=== PATIENT | male | born 1955 | race Caucasian/White ===

== ENCOUNTER 2022-07-16 05:37 | Day surgery (SDC) | payer MEDICARE, OTHER ==
[2022-07-15 11:07] LABS: BASOPHILS % (AUTO) 0.4 % (0-1); EOSINOPHILS # (AUTO) 0.1 X10'3 (0-0.9); EOSINOPHILS % (AUTO) 2.1 % (0-6); LYMPHOCYTES # (AUTO) 1.2 X10'3 (1.1-4.8); LYMPHOCYTES % (AUTO) 21.1 % (21-51); MEAN CORPUSCULAR HEMOGLOBIN 29.3 PG (27.0-31.0); MEAN CORPUSCULAR HGB CONC 33.8 g/dL (33.0-36.5); MEAN CORPUSCULAR VOLUME 86.8 FL (78-98); MEAN PLATELET VOLUME 7.8 FL (7.4-10.4); MONOCYTES # (AUTO) 0.5 X10'3 (0-0.9); MONOCYTES % (AUTO) 9.2 % (2-12); NEUTROPHILS # (AUTO) 3.9 X10'3 (1.8-7.7); NEUTROPHILS % (AUTO) 67.2 % (42-75); PRE OP HEMATOCRIT 41.7 % (42.0-52.0); PRE OP HEMOGLOBIN 14.1 g/dL (14.0-17.9); PRE OP PLATELET COUNT 188 X10'3 (140-440); RED BLOOD COUNT 4.81 X10'6 (4.70-6.10); RED CELL DISTRIBUTION WIDTH 13.5 % (11.5-14.5)
[2022-07-15 11:19] LABS: APTT 26 SECONDS (22-32)
[2022-07-15 11:20] LABS: ALBUMIN 3.6 G/DL (3.4-5.0); ALBUMIN/GLOBULIN RATIO 1.1 (1.1-1.5); ALKALINE PHOSPHATASE 104 IU/L (46-116); BLOOD UREA NITROGEN 18 MG/DL (7-18); BUN/CREATININE RATIO 18.2 (5.4-32.0); CALCIUM 9.5 MG/DL (8.5-10.1); CHLORIDE 105 MMOL/L (99-107); CREATININE 0.99 MG/DL (0.60-1.10); PRE OP ALT 30 U/L (30-65); PRE OP ANION GAP 4 (8-16); PRE OP AST 20 U/L (10-37); PRE OP BILIRUB, TOTAL 0.5 MG/DL (0.0-1.0); PRE OP GLUCOSE 102 MG/DL (70-104); PRE OP POTASSIUM 3.8 MMOL/L (3.4-5.1); PRE OP SODIUM 141 MMOL/L (135-145); TOTAL CARBON DIOXIDE 31.7 MMOL/L (24-32); eGFR 76 ML/MIN
[2022-07-16] VITALS (12 sets, daily range): BP systolic 127–159; BP diastolic 77–98
[~2022-07-16] VITALS: Ht 172.7 cm; Wt 94.8 kg
[~2022-07-16 05:37] MED LIST: BICA50TA7 PO; FLO0.4C; ceFAZolin inj. 2,000 MG in dextrose 5%-water 100 ML IV ONE; famotidine 20mg tablet PO ONE; ringers solution, lacted 1,000 ML IV SCH
[2022-07-16] MEDS ORDERED: BUPIVAcaine 0.5% inj/PF 30 ML ONE ×2 (06:07→07:45)
[2022-07-16] MEDS ORDERED: LIDOcaine 1% 30ml preserv. free vial ONE (06:07)
[2022-07-16] MEDS ORDERED: BUPIVACAINE liposomal/PF 13.3 MG/ML vial IM ONE ×2 (06:09→08:00)
[2022-07-16] MEDS ORDERED: sevoflurane 250ml liquid IH ONE (07:22)
[2022-07-16] MEDS ORDERED: neostigmine methylsulfate 1 MG/ML 10ml vial ONE (07:22)
[2022-07-16] MEDS ORDERED: glycopyrrolate 0.2mg/ml inj ONE (07:22)
[2022-07-16] MEDS ORDERED: fentaNYL/PF 50MCG/1 ML 2ML syringe ONE (07:30)
[2022-07-16] MEDS ORDERED: midazolam 1 mg/ML 2ml injection ONE (07:31)
[2022-07-16] MEDS ORDERED: meperidine/PF 25mg/ml syringe ONE (07:31)
[2022-07-16] MEDS ORDERED: propofol inj 20 ML IV ONE (07:33)
[2022-07-16] MEDS ORDERED: LIDOcaine 2% (20mg/ml) 5ml vial ONE (07:33)
[2022-07-16] MEDS ORDERED: rocuronium 10mg/ml inj IV ONE (07:37)
[2022-07-16] MEDS ORDERED: dexamethasone sod phosphate 4mg/ml inj. ONE (07:46)
[2022-07-16] MEDS ORDERED: acetaminophen 1,000mg/100ml IV 100 ML IV ONE (07:46)
[2022-07-16] MEDS ORDERED: LIDOcaine 1% 30ml preserv. free vial IJ ONE (08:00)
[2022-07-16] MEDS ORDERED: BUPIVAcaine 0.5% inj/PF 30 ml vial IJ ONE ×2 (08:00)
[2022-07-16] MEDS ORDERED: ringers solution, lacted 1,000 ML IV SCH (08:05)
[2022-07-16] MEDS ORDERED: proCHLORperazine 10 MG/2 ml inj IV PRN (08:05)
[2022-07-16] MEDS ORDERED: morphine 2 MG/ML inj. syringe IV PRN (08:05)
[2022-07-16] MEDS ORDERED: meperidine/PF 25mg/ml syringe IV PRN ×3 (08:05)
[2022-07-16] MEDS ORDERED: ondansetron/PF 4mg/2ml inj IV PRN (08:05)
[2022-07-16] MEDS ORDERED: morphine 4 MG/ML inj SYRINge IV PRN (08:05)
[2022-07-16] MEDS ORDERED: ondansetron/PF 4mg/2ml inj ONE (08:34)
[2022-07-16] MEDS ORDERED: oxyCODONE/APAP 5-325mg tablet PO PRN (08:55)
--- NOTE | 2022-07-16 09:00 | NUR ---
Received from OR via [facility], accompanied by Anesthesiologist DR BERMUDEZ and report given by Anesthesiolgist. PT IS GROGGY AND HAS ORAL AIRWAY IN PLACE. PT PLACED ON BEDSIDE MONITOR,VSS. PT IS IN SR WITH RATE IN 60'S. PT IS RECEIVING 10L O2 TO MASK AND TOLERATING WELL WITH O2 SAT >95%. PT HAS 20G PIV TO LEFT HAND WITH LR INFUSING ORDERED. PT HAS DRSG TO UMBILICUS AND ABD BINDER IN PLACE THAT IS CDI. PT IS RESTING WITH NO S/S OF DISTRESS OR DISCOMFORT NOTED, WILL CONTINUE TO ASSESS.
--- NOTE | 2022-07-16 10:25 | NUR ---
PT TAKEN OFF MONITOR TO GET DRESSED AND TO AMBULATE TO THE RESTROOM.
--- NOTE | 2022-07-16 10:55 | NUR ---
PATIENT A&OX4, DENIES PAIN, VOIDED AND V/S WNL, SCD OFF, 20G TO LT HAND D/C. I HAVE REVIEWED D/C INSTRUCTIONS WITH PATIENT AND THEY HAVE VERBALIZED UNDERSTANDING. PATIENT D/C HOME WITH ALL BELONGINGS AND SISTER TRANSPORTED PATIENT HOME.
== END 2022-07-16 10:45 | disposition home or self-care (01) ==
LOC: PAS 05:37
PROVIDERS: ATTEND Surgery
DX: K42.9 Umbilical hernia without obstruction or gangrene (principal); I25.2 Old myocardial infarction; I25.10 Atherosclerotic heart disease of native coronary artery without angina pectoris; I10 Essential (primary) hypertension; Z79.01 Long term (current) use of anticoagulants; Z79.899 Other long term (current) drug therapy; Z88.8 Allergy status to other drugs, medicaments and biological substances; Z79.82 Long term (current) use of aspirin; Z98.890 Other specified postprocedural states
CPT/HCPCS: 36415; 49652; 64488; 80053; 82948; 85025; 85610; 85730; 93005; C1781; C9290; J0131; J0690; J1100; J2175; J2250; J2405; J2704; J2710; J3010; J3490; J7030; J7060; J7120; S0020; Z7506; Z7508; Z7512; A4215; A4618